=== PATIENT | male | born 1960 | race Caucasian/White ===

== ENCOUNTER 2019-07-18 11:21 | Outpatient (CLI) | payer OTHER ==
[~2019-07-18] VITALS: Ht 170.2 cm; Wt 75.0 kg
--- NOTE | ~2019-07-18 | HEMODYNAMI ---
PATIENT:ALVAREZ TURNER MEDICAL RECORD: [id number] : 62 [id number] ADMISSION DATE: 07/18/19 Generatedon:07/18/201913:25 Patient name: ALVAREZ TURNER Patient #: [id number] SSN: [id number] : 1960 Date of study: 07/18/2019 Page: Of Hemodynamic Procedure Report Patient Data Patient Demographics Procedure consent was obtained First Name: ALVAREZ Gender: Male Last Name: JOHNNY : 1960 Patient #: [id number] Age: 59 year(s) Race: SSN: [id number] Additional ID: [id number] Contact details [address]: [address] [place] [address] State: [place] City: [place] Zip code: [address] Past Medical History Allergies: No allergy information Admission Admission Data Admission Date: 07/18/2019 Admission Time: 11:21 Height (in.): 66.93 BSA: 1.86 (m2) Height (cm.): 170 BMI: 25.95 (kg/m2) Weight (lbs.): 165.35 Weight (kg.): 75 Lab Results Lab Result Date: 07/18/2019 Lab Result Time: 0:00 Biochemistry Name Units Result Min Max BUN mg/dl 23 --(----)-* 7 18 Creatinine mg/dl 1.1 --(--*-)-- 0.6 1.3 eGFR ml/min 73.84923 *-(----)-- 90 120 NONAFRICAN CBC Name Units Result Min Max Hematocrit % 45.5 --(-*--)-- 42 54 Hemoglobin g/dl 17 --(---*)-- 13.5 17.5 Procedure Procedure Types Cath Procedure Diagnostic Procedure LHC LHC w/Coronaries w/Grafts FFR/IVUS FFR Initial Sedation Charges Moderate Sedation up to 15 minutes PCI Procedure Coronary Stent Coronary Stent Initial x2 Procedure Description Procedure Date Procedure Date: 07/18/2019 Procedure Start Time: 12:49 Procedure End Time: 13:21 Procedure Staff Name Function Tra Carlos MD Performing Physician Naye Andujar RT Monitor Lissy Hilario RT Scrub Jcarlos Lee RT Scrub Tanesha Bermeo RN Nurse Procedure Data Cath Procedure Fluoroscopy Diagnostic fluoroscopy Total fluoroscopy Time: 8.1 time: 8.1 min min Diagnostic fluoroscopy Total fluoroscopy dose: dose: 1055 mGy 1055 mGy Contrast Material Contrast Material Type Amount (ml) Isovue 300 177 Entry Location Entry Primary Successful Side Size Upsize Upsize Entry Closure Succes sful Closure Location (Fr) 1 (Fr) 2 (Fr) Remarks Device Remarks Femoral Left 5 Fr 6 Fr Exoseal artery Short Estimated blood loss: 10 ml Diagnostic catheters Device Type Used For End Catheter Placement MULTIPACK Pigtail 5 Fr Procedure catheter MULTIPACK JL 4.0 5Fr Procedure catheter MULTIPACK 3DRC 5Fr Procedure catheter Procedure Complications No complications Procedure Medications Medication Administration Route Dosage Oxygen etCO2 Nasal cannula 2 l/min Lidocaine 2% added to field 20 Heparin Flush Bag added to field 2 bags (1000units/500ml NS) 0.9% NaCl I.V. 100 ml/hr Heparin Bolus I.V. 4000 units Versed I.V. 2 mg Fentanyl I.V. 50 mcg Versed I.V. 2 mg Fentanyl I.V. 50 mcg Hemodynamics Rest BSA: 1.86 (m2) HGB: 17 (g/dl) O2 Consumption: Estimated: 233.43 (ml/min) O2 Cons umption indexed: Estimated:125.5 (ml/min/m) Heart Rate: 90 (bpm) Snapshots Pre Cath Intra NCS Post Cath Vital Signs Time Heart Resp SPO2 etCO2 NIBP (mmHg) Rhythm Pain Sedation Rate (ipm) (%) (mmHg) Status Level (bpm) 12:35:57 91 19 96 0 146/87(124) NSR 0 (11) 10(A) , No pain 12:40:11 105 18 93 33 154/99(110) NSR 0 (11) 10(A) , No pain 12:44:23 97 14 95 32.9 130/87(101) NSR 0 (11) 10(A) , No pain 12:48:31 96 16 96 38.2 140/94(107) NSR 0 (11) 10(A) , No pain 12:52:36 96 13 95 21.7 139/90(118) NSR 0 (11) 9(A) , No pain 12:56:46 96 13 96 22.4 127/83(109) NSR 0 (11) 9(A) , No pain 13:00:56 96 13 97 32.9 134/78(104) NSR 0 (11) 9(A) , No pain 13:05:04 99 15 97 17.9 141/87(106) NSR 0 (11) 9(A) , No pain 13:09:10 99 14 97 26.2 134/90(105) NSR 0 (11) 9(A) , No pain 13:13:22 98 14 98 27.7 133/84(107) NSR 0 (11) 10(A) , No pain 13:17:30 99 15 98 16.4 133/85(104) NSR 0 (11) 10(A) , No pain 13:21:39 100 17 98 35.9 140/89(110) NSR 0 (11) 10(A) , No pain Medications Time Medication Route Dose Verified Delivered Reason Notes Effectiveness by by 12:40:25 Oxygen etCO2 2 Tra Buffie used for Nasal l/min Terrance Bermeo RN procedure cannula 12:40:31 Lidocaine 2% added 20ml Tra Tra for local to vial Terrance Carlos MD anesthetic field 12:40:38 Heparin Flush added 2 Tra Tra used for Bag to bags Terrance Carlos MD procedure (1000units/500ml field NS) 12:40:46 0.9% NaCl I.V. 100 Tra Buffie Per physician ml/hr Terrance Bermeo RN 12:47:15 Versed I.V. 2 mg Tra Buffie for sedation Terrance Bermeo RN 12:47:21 Fentanyl I.V. 50 Tra Buffie for sedation mcg Terrance Bermeo RN 12:56:12 Heparin Bolus I.V. 4000 Tra Buffie for verif ied units Terrance Bermeo RN anticoagulation with dr carlos 13:00:04 Versed I.V. 2 mg Tra Buffie for sedation Terrance Bermeo RN 13:00:08 Fentanyl I.V. 50 Tra Thompsonie for sedation mcg Terrance Bermeo RN Procedure Log Time Note 12:13:13 Informed consent obtained and on chart 12:16:51 Procedure Status Urgent Heart Cath (IP). 12:16:54 Jcarlos Lee RT(R) sent for patient. Start room use. 12:16:55 Time tracking: Regular hours (M-F 7:00 - 5:00) 12:16:58 Plan of Care:Hemodynamics will remain stable., Cardiac rhythm will remain stable., Comfort level will be maintained., Respiratory function will remain adequate., Patient/ family verbilizes understanding of procedure., Procedure tolerated without complication., Recovers from procedure without complications.. 12:18:48 Patient allergic to No allergy information 12::25 Lab Result : BUN 23 mg/dl 12:: Lab Result : Creatinine 1.1 mg/dl 12:: Lab Result : eGFR NONAFRICAN 73.97677 ml/min 12:: Lab Result : Hematocrit 45.5 % 12:: Lab Result : Hemoglobin 17 g/dl 12:28:00 Patient Weight : 165.35 lbs 12:28:04 Patient Height : 66.93 inches 12:29:51 Patient received from ED to CCL 1 Alert and oriented. Tansferred to table in Supine position. 12:29:53 Warm blankets applied, and margot hugger turned on for patient comfort. 12:29:53 Correct patient and procedure confirmed by team. 12:29:53 ECG and BP/O2 sat monitors applied to patient. 12:34:53 Vital chart was started 12:34:54 Baseline sample Acquired. 12:34:58 Rhythm: sinus rhythm 12:35:00 Full Disclosure recording started 12:35:05 H&P Date Dictated: 07/18/2019 Emergent; H&P N/A. 12:35:06 Pre-procedure instructions explained to patient. 12:35:06 Pre-op teaching completed and patient verbalized understanding. 12:35:08 Family unavailable. 12:35:10 Patient NPO since Midnight. 12:35:13 Is the patient allergic to Iodine/contrast media? No. 12:35:14 Is patient on blood thinner?Yes 12:35:16 ACC The patient was administered the following blood thiners within the last 24 hours: ACCPlavix 12:35:19 Patient diabetic? Yes. 12:35:23 If diabetic: On Metformin? Yes 12:35:25 If on Metformin: Last Dose? 07/18/2019 12:35:28 Previous problem with sedation/anesthesia? No ? 12:35:29 Snore? Yes 12:35:42 Sleep apnea? No 12:35:46 Deviated septum? No 12:35:52 Opens mouth fully? Yes 12:35:53 Sticks out tongue? Yes 12:35:54 Airway obstruction? No ? 12:35:56 Dentures? No ? 12:35:59 Pre procedure: left dorsailis pedis pulse 1+ Palpable, but thready & weak; easily obliterated 12:36:57 LEFT GROIN DUE TO STATUS POST RIGHT ILIAC ANEURYSM REPAIR. 12:37:13 Patient pain scale 2/10 Physician observed.. 12:37:20 IV patent on arrival in right antecubital with 0.9% NaCl at [facility]. 12:37:24 Lab results completed and on chart. 12:37:27 Left groin area was prepped with chlora-prep and draped in sterile fashion 12:37:31 Alarms reviewed by R. N. 12:37:32 Sharps counted by scrub and verified by R.N. 12:37:34 Use device set Femoral Dx 12:37:36 Tegaderm 4 x 4 (1626W) opened to sterile field. 12:37:38 ACIST Hand Control (02824) opened to sterile field. 12:37:38 ACIST Manifold (54618) opened to sterile field. 12:37:39 ACIST Syringe (98648) opened to sterile field. 12:37:40 Bag Decanter (2002S) opened to sterile field. 12:37:40 Medline Cath Pack ([id number]) opened to sterile field. 12:37:42 DIAGNOSTIC Multipack 5Fr catheter set (DD5418) opened to sterile field. 12:37:44 SHEATH 5FR [place] (KLA478) opened to sterile field. 12:37:44 EMERALD Guide Wire (052-075) opened to sterile field. 12:40:25 Oxygen 2 l/min etCO2 Nasal cannula was administered by Tanesha Bermeo RN; used for procedure; 12:40:31 Lidocaine 2% 20ml vial added to field was administered by Tra Carlos MD; for local anesthetic; 12:40:38 Heparin Flush Bag (1000units/500ml NS) 2 bags added to field was administered by Tra Carlos MD; used for procedure; 12:40:46 0.9% NaCl 100 ml/hr I.V. was administered by Tanesha Bermeo RN; Per physician; 12:46:35 --------ALL STOP TIME OUT------ 12:46:35 Final Timeout: patient, procedure, and site verified with staff and physician. All members of the team are in agreement. 12:46:37 Left groin site verified by team. 12:46:45 Fire Safety Assessment: A--An alcohol-based skin anteseptic being used preoperatively., C--Open oxygen or nitrous oxide is being used., D--An ESU, laser, or fiber-optic light is being used. 12:46:47 Physical assessment completed. ASA score P 2 - A patient with mild systemic disease as per Tra Carlos MD. 12:46:55 2) 60-89 Mildly reduced kidney function, and other findings (as for stage 1) point to kidney disease. 12:46:59 Maximum allowable contrast dose (3.7 X eGFR X 0.75)192 ml. 12:47:02 Sedation plan: IV Moderate Sedation Medication:Versed, Fentanyl 12:47:15 Versed 2 mg I.V. was administered by Tanesha Bermeo RN; for sedation; 12:47:21 Fentanyl 50 mcg I.V. was administered by Tanesha Bermeo RN; for sedation; 12:48:46 Zero performed for pressure channel P1 12:48:49 Procedure started. 12:49:31 Local anesthetic to left femerol artery with Lidocaine 2% by Tra Carlos MD.INITIAL ACCESS ONLY 12:49:34 Zero performed for pressure channel P1 12:49:49 A 5 Fr sheath was inserted into the Left Femoral artery 12:50:10 A MULTIPACK Pigtail 5 Fr catheter was advanced over the wire and used for Procedure. 12:50:21 LV gram done using ACUNA 12:50:23 Injector settings: Ml/sec: 10, Volume: 20, 12:50:52 EF : 60 % 12:50:53 Catheter removed. 12:51:00 A MULTIPACK JL 4.0 5Fr catheter was advanced over the wire and used for Procedure. 12:52:16 LCA angiography performed. 12:52:17 Catheter removed. 12:52:32 A MULTIPACK 3DRC 5Fr catheter was advanced over the wire and used for Procedure. 12:53:18 CANCINO to LAD angiography performed. 12:53:31 RCA angiography performed. 12:54:37 SVG to Circ angiography performed. 12:54:38 Catheter removed. 12:55:15 SHEATH 6FR [place] (FOE955) opened to sterile field. 12:55:15 INFLATOR Merit BasixCompak (FO5489) opened to sterile field. 12:55:16 CHOICE PT Extra Support 182cm wire ([id number]) opened to sterile field. 12:55:25 Sheath upsized to a 6 Fr Short. 12:56:12 Heparin Bolus 4000 units I.V. was administered by Tanesha Bermeo RN; for anticoagulation; verified with dr carlos 12:56:15 Curverider Verrata Plus pressure wire (51497P) opened to sterile field. 12:56:16 GUIDE 6FR XBLAD 3.5 catheter ([id number]) opened to sterile field. 12:56:25 GUIDE 6FR AR 2.0 SH catheter ([id number]) opened to sterile field. 12:56:44 6 Fr XBLAD 3.5 guide catheter was inserted over the wire 12:57:26 CHOICE ES 182 wire advanced. 12:58:12 CHOICE ES 182 REMOVED. 12:58:19 GRAPHIX 182cm guide wire ([id number]) opened to sterile field. 12:58:46 PT GRAPHIX WIRE ADVANCED 13:00:04 Versed 2 mg I.V. was administered by Tanesha Bermeo RN; for sedation; 13:00:08 Fentanyl 50 mcg I.V. was administered by Tanesha Bermeo RN; for sedation; 13:00:12 Place stent Inflation Number: 1 A LISS RX 2.25 x 26 stent ([id number]) was prepped and advanced across the 1st Ob Mirian . The stent was deployed at 13 JOSEF for 0:10 (min:sec) . 13:00:33 Stent catheter was removed intact over wire. 13:00:34 Wire removed. 13:00:34 Guide catheter removed. 13:00:56 6 Fr AR 2 SH guide catheter was inserted over the wire 13:01:56 FFR/IFR wire advanced. 13:05:40 FFR REMOVED. NEW WIRE ADVNACED 13:05:49 Rocky Comfort Verrata Plus pressure wire (88124P) opened to sterile field. 13:06:57 Wire advanced across lesion. 13:09:06 mRCA lesion measured at .97 with IFR 13:09:42 Wire removed. 13:09:53 PT GRAPHIX ADVANCED 13:12:38 Place stent Inflation Number: 1 A LISS RX 2.0 x 15 stent ([id number]) was prepped and advanced across the R PDA . The stent was deployed at 15 JOSEF for 0:10 (min:sec) . 13:13:07 Stent catheter was removed intact over wire. 13:13:08 Wire removed. 13:13:08 Guide catheter removed. 13:13:20 ACT drawn and resulted at 297 seconds. (normal therapeutic range 180-240 seconds). 13:13:21 EXOSEAL 6Fr (EX600) opened to sterile field. 13:13:40 Sheath removed intact; hemostasis achieved with Exoseal to the Left Femoral artery. 13:13:42 Procedure ended.(Physican Out) 13:14:46 Fluoroscopy time 08.10 minutes. 13:14:55 Fluoroscopy dose: 1055 mGy 13:14:55 Flurop Dose total: 1055 13:15:10 Dose Area Product 53383 mGy/cm. 13:15:15 Contrast amount:Isovue 300 177ml. 13:15:19 Maximum allowable dose exceeded? No. 13:15:20 Sharps counted by scrub and verified by R.N. 13:15:23 Post-op/insertion site Left Femoral artery dressed using a 4 x 4 and Tegaderm. 13:15:25 Post-procedure physical assessment completed. ASA score P 2 - A patient with mild systemic disease as per Tra Carlos MD. 13:15:29 Post procedure rhythm: sinus rhythm 13:15:31 Estimated blood loss: 10 ml 13:15:32 Post procedure instruction explained to patient.Patient verbalizes understanding. 13:15:33 Patient needs reinforcement of post procedure teaching. 13:15:59 Procedure type changed to Cath procedure, Diagnostic procedure, LHC, LHC w/Coronaries w/Grafts, FFR/IVUS, FFR Initial, Sedation Charges, Moderate Sedation up to 15 minutes, PCI procedure, Coronary Stent, Coronary Stent Initial x2 13:16:36 Procedure and supply charges have been captured, reviewed, submitted and are correct. 13:16:38 Procedure Complication : No complications 13:21:26 Vital chart was stopped 13:21:27 See physician's report for complete and final results. 13:21:32 Report given to Pre/Post Procedure Room. 13:21:38 Patient transfered to Pre/Post Procedure Room with Bed. 13:21:42 Procedure ended. 13:21:42 Full Disclosure recording stopped 13:21:46 End room use (Document Last) Intervention Summary Intervention Notes Time ActionType Lesion and Equipment Used Action# Pressure Duration Attributes 13:00:12 Place stent 1st Ob Mirian LISS RX 2.25 x 1 13 00:10 26 stent ([id number]) 13:12:38 Place stent R PDA LISS RX 2.0 x 1 15 00:10 15 stent ([id number]) Device Usage Item Name Manufacture Quantity Catalog Number Hospital Part Current Minimal Lot# / Charge Number Stock Stock Serial# Code Tegaderm 4 x 4 3M 1 1626W 437504 153776 633445 5 (1626W) ACIST Hand Acist 1 51182 135709 122232 651314 5 Control Medical (20723) Systems Inc ACIST Manifold Acist 1 96033 359410 218753 220905 5 (12269) Medical Systems Inc ACIST Syringe Acist 1 35248 206520 797500 638790 20 (34887) Medical Systems Inc Bag Decanter Microtek 1 2002S 582851 31502 927027 5 (2002S) Medical Inc. Medline Cath Medline 1 [id number] 950290 68658 143274 5 Pack ([id number]) DIAGNOSTIC Cardinal 1 SG3449 462557 71486 524017 30 Multipack 5Fr Health catheter set (TK9248) SHEATH 5FR Terumo 1 JWP865 456885 945290 952436 5 [place] (WFP555) EMERALD Guide Cardinal 1 502-455 709930 780736 833904 5 Wire (502-455) Health MULTIPACK Cardinal 1 560423 5 Pigtail 5 Fr Health catheter MULTIPACK JL Cardinal 1 309075 5 4.0 5Fr Health catheter MULTIPACK 3DRC Cardinal 1 548467 5 5Fr catheter Health SHEATH 6FR Terumo 1 VIN090 576064 597332 472830 40 [place] (RYX728) INFLATOR Merit Merit 1 KU0127 092473 937160 550376 15 BasixCompak Medical (ZH9671) CHOICE PT Corona 1 [id number] 269865 320208 867304 5 Extra Support Scientific 182cm wire (4085095T7) Rocky Comfort Rocky Comfort 2 17779T 534973 450460719 735079 5 Verrata Plus pressure wire (00499C) GUIDE 6FR Cardinal 1 67558137 274337 740884 757508 10 XBLAD 3.5 Health catheter (59331965) GUIDE 6FR AR Medtronic 1 [id number] 596572 13214 935561 1 2.0 SH catheter (PS4TO2IP) GRAPHIX 182cm [place] 1 [id number] 610151 869881 169740 5 guide wire Scientific (8013272B3) LISS RX 2.25 x Medtronic 1 [id number] 255387 4397995 420073 5 [id number] 26 stent ([id number]) LISS RX 2.0 x Medtronic 1 [id number] 905282 3612271 523990 5 [id number] 15 stent ([id number]) EXOSEAL 6Fr Cardinal 1 EX600 696916 826640 526738 10 (EX600) Health Signature Audit [place] Stage Time Signature Unsigned Intra-Procedure 07/18/2019 Naye Andujar 1:25:02 PM RT(R) Signatures Performing Physician : Signature : Tra Carlos MD Date : Time : Monitor : Naye Andujar Signature : RT Date : Time : Nurse : Tanesha Bermeo RN Signature : Date : Time : [place] [address] [place] [address]
[2019-07-18 11:25] VITALS: Ht 170.2 cm; Wt 75.0 kg
[2019-07-18] MEDS ORDERED: PLAVIX75 MG PO (11:32)
[2019-07-18] MEDS ORDERED: GLUCOPHAGE500 MG PO (11:33)
[2019-07-18] MEDS ORDERED: METOPROLOL TART50 MG PO (11:33)
[2019-07-18] MEDS ORDERED: ASPIRIN325 MG PO (11:33)
[2019-07-18] MEDS ORDERED: INVOKANA100 MG PO (11:33)
[2019-07-18] MEDS ORDERED: LANTUS SOL100 UNIT/1 SC (11:34)
[2019-07-18 11:38] LABS: BASOPHILS 0.4 % (0-2); HEMATOCRIT 45.5 % (42.0-54.0); IMMATURE GRANULOCYTES 0.4 % (0-5); LYMPHOCYTES 22.4 % (15-50); MCH 32.4 pg (26.0-34.0); MCHC 37.4 g/dL (31.0-37.0); MCV 86.8 fL (80.0-100.0); MEAN PLATELET VOLUME 10.8 fL (7.4-10.4); MONOCYTES 6.3 % (2-11); NEUTROPHILS 68.5 % (40-80); PLATELET COUNT 247 10x3/uL (130-400); RBC 5.24 10x6/uL (4.20-6.10); RDW 12.8 % (11.5-14.5); WBC 7.6 10x3/uL (4.8-10.8)
[2019-07-18 12:05] LABS: ALBUMIN 4.4 g/dL (3.4-5.0); ALKALINE PHOSPHATASE 122 U/L (46-116); ALT (SGPT) 37 U/L (10-68); BILIRUBIN - TOTAL 0.51 mg/dL (0.2-1.3); CARBON DIOXIDE 22.5 mmol/L (21.0-32.0); CHLORIDE - SERUM 98 mmol/L (98-107); CREATINE KINASE 144 UL (21-232); CREATININE - SERUM 1.1 mg/dL (0.6-1.3); MAGNESIUM - SERUM 2.4 mg/dL (1.8-2.4); POTASSIUM - SERUM 4.3 mmol/L (3.5-5.1); PROTEIN - SERUM 7.8 g/dL (6.4-8.2); SODIUM 133 mmol/L (136-145); UREA NITROGEN 23 mg/dL (7-18); eGFR NON AFRICAN AMERICAN 73 mL/min (90-120)
[2019-07-18 12:07] LABS: APTT 28.6 SECONDS (22.8-39.4); INR 0.93 (0.85-1.17); PROTIME 11.9 SECONDS (11.6-15.0)
[2019-07-18 12:08] LABS: CALC OSMOLALITY 291 mosm/kg (275-300); TROPONIN-I < 0.017 ng/mL (0.000-0.060)
[2019-07-18 12:09] LABS: GLUCOSE 495 mg/dL (74-106)
[2019-07-18 12:26] VITALS: BP 150/90
--- NOTE | 2019-07-18 13:40 | NUR ---
PATIENT ARRIVED TO ROOM 2, PLACED ON CM. VSS. LEFT GROIN DRESSING IS CDI, NO S/S OF BLEEDING OR HEMATOMA.
--- NOTE | 2019-07-18 13:55 | NUR ---
PATIENT RESTING, VSS ON 2L NC. LEFT GROIN DRESSING IS CDI, NO S/S OF BLEEDING OR HEMATOMA. NO C/O PAIN, NUMBNESS, OR TINGLING. NO N/V.
--- NOTE | 2019-07-18 14:25 | NUR ---
PATIENT RESTING, VSS ON 2L NC. LEFT GROIN DRESSING IS CDI, NO S/S OF BLEEDING OR HEMATOMA. NO C/O PAIN, NUMBNESS, OR TINGLING. NO N/V.
--- NOTE | 2019-07-18 14:55 | NUR ---
PATIENT VOIDED 300 ML CLEAR YELLOW URINE. VSS ON 2L NC. LEFT GROIN DRESSING IS CDI, NO S/S OF BLEEDING OR HEMATOMA. NO C/O PAIN, NUMBNESS, OR TINGLING. PHYSICIAN AT BEDSIDE TO UPDATE PATIENT AND FAMILY.
--- NOTE | 2019-07-18 15:25 | NUR ---
PATIENT AWAKE, FAMILY PRESENT AT BEDSIDE. PATIENT DRINKING WATER, NO N/V. VSS ON 2L NC. LEFT GROIN DRESSING IS CDI, NO S/S OF BLEEDING OR HEMATOMA. NO C/O PAIN, NUMBNESS, OR TINGLING.
--- NOTE | 2019-07-18 15:55 | NUR ---
PATIENT C/O PAIN IN BACK R/T LAYING FLAT, SEE ORDERS. VSS ON 1L NC. LEFT GROIN DRESSING IS CDI, NO S/S OF BLEEDING OR HEMATOMA. PATIENT EATING CRACKERS. NO N/V.
--- NOTE | 2019-07-18 16:15 | NUR ---
HEAD OF BED ELEVATED TO 30 DEGREES, LEFT GROIN DRESSING IS CDI, NO S/S OF BLEEDING OR HEMATOMA. NORCO GIVEN R/T BACK PAIN. VSS ON ROOM AIR.
--- NOTE | 2019-07-18 16:45 | NUR ---
HEAD OF BED ELEVATED TO 60 DEGREES, LEFT GROIN DRESSING IS CDI, NO S/S OF BLEEDING OR HEMATOMA. PATIENT STATES THAT PAIN IS "GETTING BETTER". VSS ON ROOM AIR.
--- NOTE | 2019-07-18 17:00 | NUR ---
WRITTEN AND VERBAL DISCHARGE INSTRUCTIONS GIVEN TO PATIENT, PATIENT VOICES UNDERSTANDING. IV REMOVED. VSS ON ROOM AIR. LEFT GROIN DRESSING IS CDI, NO S/S OF BLEEDING OR HEMATOMA. NO C/O PAIN, NUMBNESS, OR TINGLING. PATIENT TAKEN OFF OF MONITORS TO GET DRESSED.
--- NOTE | 2019-07-18 17:15 | NUR ---
PATIENT TRANSPORTED VIA WHEELCHAIR TO CAR WITH FAMILY DRIVING, ALL BELONGINGS WITH PATIENT.
--- NOTE | 2019-07-22 11:09 | CN ---
PATIENT NAME:ALVAREZ CORTEZ MEDICAL RECORD: [id number] : 62 LOCATION:D.CAT ADMIT DATE: ACCOUNT: [id number] CONSULTING PHYSICIAN: RUBEN DOHERTY MD REFERRING PHYSICIAN: NICKI FLANNERY MD DATE OF CONSULTATION: 07/18/2019 DIAGNOSES: 1. Unstable angina class IV. 2. Coronary artery disease. 3. Previous coronary artery bypass graft surgery. 4. Previous PTCA and stent times 9. 5. Insulin-dependent diabetes. 6. Hypertension. HISTORY OF PRESENT ILLNESS: Mr. Cortez is from [place]. 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 For the past 2 days, he has had increasing episodes of chest discomfort. He had severe chest discomfort today. He continues to have pain at 6/10 in the Emergency Room despite sublingual nitros and now morphine. His pain is actually escalating since he has been here. It is just like that of his previous angina. He has not had a myocardial infarction in the past. He has had angina. His bypass surgery was 3 years ago. He had 9 PTCA and stent procedures prior to that. He is on aspirin and Plavix as well as metoprolol. PHYSICAL EXAMINATION: CONSTITUTIONAL/GENERAL APPEARANCE: Well nourished, well developed, appears stated age. EYES: Lids and conjunctivae noninjected. No discharge. No pallor. ENT: Lips within normal limit. No cyanosis. No pallor. NECK: Carotid arteries, bilateral normal upstroke. No bruits. No thrills. No jugular venous pressure or distention. CERVICAL LYMPH NODES: Nontender. Nonenlarged. THYROID: Not enlarged. No nodules. CARDIOVASCULAR: Precordial exam, nondisplaced. No heaves or pericardial thrills. Rate and rhythm, regular. Heart sounds, normal S1, normal S2. No S3, no gallop, no rub. Systolic murmur, not heard. Diastolic murmur, not heard. RESPIRATORY: Respiratory effort, unlabored. Normal curvature. No thoracic deformity. No chest wall tenderness. Percussion, resonant. Auscultation, clear. No wheezes, no rales, no rhonchi. ABDOMEN: Soft, nondistended, nontender. No abdominal pain, no vomiting and normal appetite. MUSCULOSKELETAL: No joint tenderness, normal gait, normal tone. SKIN: Warm and dry. His EKG is with no acute changes; however, he continues to have severe anginal symptomatology. Due to the fact that he had bypass surgery, 9 stents in the past, is a diabetic, and is having class IV unstable angina, we will proceed with coronary angiography. Further care depends upon findings of the angiography. As well, he has hyperlipidemia. He has been intolerant to statins. He has a family history of coronary disease as well. TRANSINT:[id number] Voice Confirmation ID: [id number] DOCUMENT ID: [id number] CONSULT REPORT [id number] ALVAREZ CORTEZ JEFFREY MD at 1109 CC: [id number] DICTATION DATE: 07/18/19 1200 VP & GENERAL COUNSEL: 07/18/19 1301 [facility] CLI 07/18/19 [place] [address] [place] [address]
--- NOTE | 2019-07-22 11:09 | OP ---
PATIENT NAME: ALVAREZ TURNER MEDICAL RECORD: [id number] :62 LOCATION:D.CAT ADMISSION DATE: SURGEON: RUBEN DOHERTY MD DATE OF OPERATION: 07/18/2019 DATE OF SERVICE: 07/18/2019 PROCEDURES: 1. PTCA stent left circumflex. 2. PTCA stent RCA. 3. Left heart catheterization. 4. Selective coronary angiography. 5. Vein graft angiography. 6. CANCINO angiography. 7. IFR. PROCEDURE IN DETAIL: After informed consent was obtained and after a detailed description of risks, benefits as well as alternative therapies, the patient elected to proceed with angiogram and angioplasty. The left femoral area was prepped and draped in normal sterile fashion. Left femoral artery was cannulated via modified Seldinger technique with placement of 6-Divehi sheath. All catheters exchanged through this sheath. FINDINGS: The left ventriculogram was performed in standard 30-degree ACUNA view, reveals good cardiac wall motion, ejection fraction preserved at 60%. SELECTIVE CORONARY ANGIOGRAPHY: 1. Left main is with no significant angiographic disease. 2. Left anterior descending is totally occluded. 3. CACNINO to the LAD is widely patent. Distal LAD is severely diffusely diseased. 4. The left circumflex is totally occluded in the mid vessel. There is a first obtuse marginal that takes off prior to the total occlusion, this has 90+ percent stenosis throughout the mid portion of this vessel. 5. Vein graft to the terminal obtuse marginal was patent. Terminal obtuse marginal is diffusely diseased, but patent. 6. The right coronary has a questionable stenosis in the proximal vessel; however, IFR was normal. There is an 85-90% stenosis in the distal vessel. VESSEL ORDINARY SEAMAN STENT OF THE LEFT CIRCUMFLEX: The stent used was a 2.25 x 26 mm Yeison. Result was 0% residual stenosis. PTCA STENT OF THE DISTAL RCA: The stent used was a 2.0 x 15 mm Yeison. Result was 0% residual stenosis. OVERALL IMPRESSION: Successful percutaneous transluminal coronary angioplasty stent of the left circumflex and right coronary artery, both going from 85-95% initial stenosis to 0% residual. TRANSINT:[id number] Voice Confirmation ID: [id number] DOCUMENT ID: [id number] OPERATIVE REPORT [id number] ALVAREZ TURNER JEFFREY MD at 7700 CC: [id number] DICTATION DATE: 07/18/19 1316 TRAINING TECHNICIAN: 07/18/19 1435 DEP CLI 07/18/19 [place] [id number] [place] [id number]
== END 2019-07-18 17:15 ==
LOC: D.CATH 11:21 → D.ER 11:21 → EDSTATUS 12:08 → D.CATH 17:15
PROVIDERS: ATTEND Family Medicine
DX: I25.119 Atherosclerotic heart disease of native coronary artery with unspecified angina pectoris (principal); Z01.812 Encounter for preprocedural laboratory examination

== ENCOUNTER 2020-05-17 08:54 | Outpatient (CLI) | payer OTHER ==
[~2020-05-17] VITALS: Ht 170.2 cm; Wt 77.1 kg
--- NOTE | ~2020-05-17 | ST ---
PATIENT:ALVAREZ TURNER MEDICAL RECORD: [id number] SEX: M LOCATION:[facility] ORDER #: ADMISSION DATE: 05/17/20 AGE OF PATIENT: 59 REFERRING PHYSICIAN: INTERPRETING PHYSICIAN: RIGO SALMERON MD DATE OF SERVICE: 05/18/2020 PROCEDURE: Lexiscan-directed nuclear stress test. PROCEDURE IN DETAIL: The patient underwent a standard Lexiscan stress test, had no complications, although did experience 3/10 chest pain. This did not require any nitroglycerin. FINDINGS: The ejection fraction is 40% to 46%. SPECT imaging shows evidence of axgd-zm-akionmek inferior reversible ischemia extending mildly into the lateral distribution. There is mild inferolateral hypokinesis. IMPRESSION: Ahfx-sa-vyooylgz inferolateral ischemia. RECOMMENDATIONS: Continue medical management. Depending on clinical situation, catheter-directed angiography may be helpful. NTS:[id number] Voice Confirmation ID: [id number] DOCUMENT ID: [id number] RIGO SALMERON MD CC: [id number] DICTATION DATE: 05/18/20 1054 CONTACT CENTER PROFESSIONAL: 05/18/20 212 DEP CLI 05/18/20 [id number] [place] [id number]
[~2020-05-17 08:54] MED LIST: ASPIRIN325 MG PO; GLUCOPHAGE500 MG PO; INVOKANA100 MG PO; LANTUS SOL100 UNIT/1 SC; METOPROLOL TART50 MG PO; PLAVIX75 MG PO
[2020-05-17] MEDS ORDERED: NORVASC5 MG (09:10)
[2020-05-17 09:19] LABS: HEMATOCRIT 48.8 % (42.0-54.0); HEMOGLOBIN 16.8 g/dL (13.5-17.5); LYMPHOCYTES 17.6 % (15-50); MCH 30.7 pg (26.0-34.0); MCHC 34.4 g/dL (31.0-37.0); MCV 89.1 fL (80.0-100.0); MEAN PLATELET VOLUME 10.2 fL (7.4-10.4); NEUTROPHILS 75.4 % (40-80); PLATELET COUNT 247 10x3/uL (130-400); RBC 5.48 10x6/uL (4.20-6.10); RDW 12.7 % (11.5-14.5); WBC 6.7 10x3/uL (4.8-10.8)
[2020-05-17 09:28] LABS: APTT 30.4 SECONDS (22.8-39.4); INR 0.97 (0.85-1.17); PROTIME 12.9 SECONDS (11.6-15.0)
[2020-05-17 09:45] LABS: ALKALINE PHOSPHATASE 117 U/L (30-120); ALT (SGPT) 60 U/L (10-68); BILIRUBIN - TOTAL 0.46 mg/dL (0.2-1.3); CALC OSMOLALITY 303 mosm/kg (275-300); CALCIUM 8.6 mg/dL (8.5-10.1); CARBON DIOXIDE 25.5 mmol/L (21.0-32.0); CHLORIDE - SERUM 102 mmol/L (98-107); CKMB 2.6 U/L (0.0-3.6); CREATINE KINASE 315 UL (21-232); CREATININE - SERUM 1.3 mg/dL (0.6-1.3); MAGNESIUM - SERUM 2.1 mg/dL (1.8-2.4); POTASSIUM - SERUM 3.9 mmol/L (3.5-5.1); PROTEIN - SERUM 7.1 g/dL (6.4-8.2); SODIUM 140 mmol/L (136-145); TROPONIN-I < 0.017 ng/mL (0.000-0.060); UREA NITROGEN 26 mg/dL (7-18); eGFR NON AFRICAN AMERICAN 60 mL/min (90-120)
[2020-05-17 09:51] LABS: GLUCOSE 454 mg/dL (74-106)
[2020-05-17 12:00] VITALS: BP 144/82; BP 155/93; BMI 26.7
[2020-05-17 12:14] LABS: CKMB 2.6 U/L (0.0-3.6); CREATINE KINASE 302 UL (21-232)
[2020-05-17 12:15] LABS: TROPONIN-I < 0.017 ng/mL (0.000-0.060)
[2020-05-17 13:24] LABS: CHOL - HDL RATIO 4.5 ratio (2.3-4.9); LDL-HDL RATIO 1.6 ratio (1.5-3.5)
--- NOTE | 2020-05-17 13:58 | NUR ---
PT RECIEVED TO UNIT ALERT AND ORIENTED VSS ATTACHED TO MONITORING EQUIPMENT, LAC PIV PATENT, SPOKE WITH NELLY BREWSTER APN AND DR SALMERON, PT TOLERATING WATER AND FOOD WITHOUT DIFFICULTY, WILL CONTINUE TO MONITOR
[2020-05-17 15:00] VITALS: BP 134/82
--- NOTE | 2020-05-17 15:00 | NUR ---
PT DENIES ALL NEEDS, ABLE TO REPOSITION SELF, VSS, WILL CONTINUE TO MONITOR
[2020-05-17 16:00] VITALS: BP 127/79
[2020-05-17 17:00] VITALS: BP 126/74
[2020-05-17 17:53] LABS: CKMB 2.1 U/L (0.0-3.6); CREATINE KINASE 231 UL (21-232); TROPONIN-I 0.028 ng/mL (0.000-0.060)
[2020-05-17 18:00] VITALS: BP 135/91
--- NOTE | 2020-05-17 18:33 | NUR ---
PT TRANSFER TO 2118, REPORT CALLED TO KELSI
--- NOTE | 2020-05-17 22:24 | NUR ---
PATIENT IS RESTING COMFORTABLY IN BED. TELEMETRY PUT ON PATIENT. HE IS ALERT AND ORIENTED. HE WAS GIVEN TYLENOL FOR HEADACHE. CALL LIGHT IN REACH.
[2020-05-18] VITALS: BP 106/62
[2020-05-18 00:40] LABS: CKMB 1.9 U/L (0.0-3.6); CREATINE KINASE 214 UL (21-232); TROPONIN-I 0.027 ng/mL (0.000-0.060)
[2020-05-18 04:00] VITALS: BP 122/67
--- NOTE | 2020-05-18 04:12 | NUR ---
PATIENT IS SLEEPING COMFORTABLY IN BED. HE HAS NO COMPLAINTS AT THIS TIME. HE HAS BEEN NPO SINCE MIDNIGHT FOR STRESS TEST. CALL LIGHT IS WITH IN REACH.
[2020-05-18 07:38] LABS: BASOPHILS 0.5 % (0-2); EOSINOPHILS 3.9 % (0-7); HEMATOCRIT 45.6 % (42.0-54.0); HEMOGLOBIN 15.7 g/dL (13.5-17.5); LYMPHOCYTES 22.3 % (15-50); MCH 31.2 pg (26.0-34.0); MCHC 34.4 g/dL (31.0-37.0); MCV 90.5 fL (80.0-100.0); MEAN PLATELET VOLUME 10.1 fL (7.4-10.4); MONOCYTES 10.8 % (2-11); NEUTROPHILS 62.5 % (40-80); PLATELET COUNT 241 10x3/uL (130-400); RBC 5.04 10x6/uL (4.20-6.10); RDW 12.8 % (11.5-14.5); WBC 5.8 10x3/uL (4.8-10.8)
--- NOTE | 2020-05-18 07:45 | NUR ---
LEAVING FOR STRESS TEST BY W/C.
[2020-05-18 08:03] LABS: ALBUMIN 3.7 g/dL (3.4-5.0); ANION GAP 12.4 mmol/L (8-16); BILIRUBIN - TOTAL 0.69 mg/dL (0.2-1.3); CALCIUM 8.4 mg/dL (8.5-10.1); CARBON DIOXIDE 26.6 mmol/L (21.0-32.0); CREATININE - SERUM 1.1 mg/dL (0.6-1.3); PROTEIN - SERUM 6.2 g/dL (6.4-8.2)
[2020-05-18 12:08] VITALS: BP 143/90
[2020-05-18 12:27] VITALS: Ht 170.2 cm; Wt 77.1 kg
[2020-05-18] MEDS ORDERED: ISOSORBIDE MONO30 M1 PO (13:54)
[2020-05-18] MEDS ORDERED: COZAAR50 MG PO (13:54)
--- NOTE | 2020-05-18 14:31 | NUR ---
PATIENT PHARMACY WAS NOT IN THE SYSTEM FOR MEDICATION TO BE SENT. I ASKED THE PATIENT AND CALLED IT TO [facility] IN [place]. PATIENT DID NOT WANT TO SEE HIS PCP DR ANAYA PER DR VALENZUELA NOTE. 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
--- NOTE | 2020-05-18 14:58 | NUR ---
IV AND TELEMETRY DCD. DC PLANS GIVEN. UNDERSTANDING VOICED. ESCORTED TO CAR BY W/C.
== END 2020-05-18 15:00 | disposition home or self-care (01) ==
LOC: D.ER 08:54 → D.OPS 08:54 → D.ICU 10:48 → EDSTATUS 11:18 → D.M2 18:48 → D.OPS 05-18 15:00
PROVIDERS: Family Medicine; Internal Medicine Cardiovascular Disease; ATTEND Family Medicine
DX: R07.9 Chest pain, unspecified (principal); I25.10 Atherosclerotic heart disease of native coronary artery without angina pectoris; E11.65 Type 2 diabetes mellitus with hyperglycemia; Z79.84 Long term (current) use of oral hypoglycemic drugs; R06.02 Shortness of breath; R53.83 Other fatigue